=== PATIENT | male | born 1955 | race Caucasian/White ===

== ENCOUNTER 2023-12-08 13:48 | Outpatient (CLI) | payer MEDICARE, OTHER ==
[2023-12-08 14:53] LABS: Hematocrit 42.9 % (38.8-50.0); Hemoglobin 14.8 g/dL (13.5-17.5); Mean Corpuscular HGB CONC 34.5 g/dL (32.0-36.0); Mean Corpuscular Volume 92.7 fL (81.2-95.1); Mean Platelet Volume 10.3 fL (7.4-10.4); Platelet Count 199 10x3/uL (150-450); RBC Distribution Width 12.6 % (11.5-14.5); Red Blood Cell (RBC) Count 4.63 10x6/uL (4.32-5.72); White Blood Cell (WBC) Count 28.5 10x3/uL (3.5-10.5)
[2023-12-08 15:19] LABS: Anion Gap 14 mmol/L (10-20); BUN (Urea Nitrogen) 20 mg/dL (8.4-25.7); Calc. Creatinine Clearance 0 mL/min (70-130); Carbon Dioxide 28 mmol/L (23-31); Chloride 105 mmol/L (98-107); Estimated GFR 47; Glucose 106 mg/dL (80-115); Potassium 4.7 mmol/L (3.5-5.1); Sodium 142 mmol/L (136-145)
== END 2023-12-08 13:49 | disposition home or self-care (01) ==
LOC: LABBT 13:48
PROVIDERS: ATTEND Thoracic Surgery (Cardiothoracic Vascular Surgery)
DX: Z01.812 Encounter for preprocedural laboratory examination (principal); R22.2 Localized swelling, mass and lump, trunk
CPT/HCPCS: 80048; 85027

== ENCOUNTER 2023-12-09 08:08 | Day surgery (SDC) | payer MEDICARE, OTHER ==
[2023-12-08 14:35] VITALS: BMI 27.3
[2023-12-09] MEDS ORDERED: Bupivacaine PF 0.5% 30 ML VIAL ONE (08:26)
[2023-12-09] MEDS ORDERED: EPINEPHrine 1 MG/ML VIAL ONE (08:26)
[2023-12-09] MEDS ORDERED: fentaNYL 50 mcg/mL 1 mL Vial ONE ×3 (09:04→12:02)
[2023-12-09] MEDS ORDERED: PROPOFOL 20 ML ONE (09:04)
[2023-12-09] MEDS ORDERED: Midazolam HCl 2 mg/2 ml Vial ONE ×2 (09:04→10:30)
[2023-12-09] MEDS ORDERED: Lidocaine 2% PF 100 mg/5 ml Syringe ONE (09:05)
[2023-12-09] MEDS ORDERED: Ondansetron PF 4 MG/2 ML Vial ONE (09:05)
[2023-12-09] MEDS ORDERED: Lidocaine 2% 6 ML (Jelly) SYR ONE (09:05)
[2023-12-09] MEDS ORDERED: Dexamethasone 20 MG/5 ML VIAL ONE (09:05)
[2023-12-09] MEDS ORDERED: Rocuronium Bromide 10 MG/ML (10ML VIAL) ONE (10:06)
[2023-12-09] MEDS ORDERED: Sodium Chloride 0.9% 100 ML ONE ×2 (10:32→11:00)
[2023-12-09] MEDS ORDERED: CEFAZOLIN 2 GM VIAL ONE (10:32)
[2023-12-09] MEDS ORDERED: Dexmedetomidine 200 MCG/2 ML VIAL ONE (11:00)
[2023-12-09] MEDS ORDERED: SUGAMMADEX SODIUM 200 MG/2 ML VIAL ONE ×2 (11:10→11:11)
[2023-12-09] MEDS ORDERED: HYDROcodone/Acetaminophen 5/325 mg Tablet ONE (13:16)
== END 2023-12-09 13:59 | disposition home or self-care (01) ==
LOC: SDC 08:08
PROVIDERS: ATTEND Thoracic Surgery (Cardiothoracic Vascular Surgery)
PROC: 0WB80ZZ Excision of Chest Wall, Open Approach (ICD-10-PCS; principal; 2023-12-09)
DX: C83.32 Diffuse large B-cell lymphoma, intrathoracic lymph nodes (principal); Z79.899 Other long term (current) drug therapy; Z88.0 Allergy status to penicillin
CPT/HCPCS: 21601; 88333; J0171; J0665; J1100; J2001; J2250; J2405; J2704; J3010; J3490; 88184; 88185; 88189; 88307; 88341; 88342; 88360

== ENCOUNTER 2023-12-23 13:35 | Outpatient (CLI) | payer MEDICARE, OTHER | END 2023-12-23 13:36 | disposition home or self-care (01) | LOC: RAD 13:35 | PROVIDERS: ATTEND Thoracic Surgery (Cardiothoracic Vascular Surgery) | DX: R22.2 Localized swelling, mass and lump, trunk (principal); J94.8 Other specified pleural conditions; R91.8 Other nonspecific abnormal finding of lung field | CPT/HCPCS: 71046 ==

== ENCOUNTER 2023-12-25 11:00 | Outpatient (CLI) | payer MEDICARE, OTHER | END 2023-12-25 11:01 | LOC: PET 11:00 | PROVIDERS: ATTEND Internal Medicine Hematology & Oncology | DX: C91.10 Chronic lymphocytic leukemia of B-cell type not having achieved remission (principal); R59.0 Localized enlarged lymph nodes | CPT/HCPCS: 78815; A9552 ==

== ENCOUNTER 2024-05-17 09:00 | Outpatient (CLI) | payer MEDICARE, OTHER | END 2024-05-17 11:00 | disposition home or self-care (01) | LOC: PET 09:00 | PROVIDERS: ATTEND Internal Medicine Hematology & Oncology | DX: C91.10 Chronic lymphocytic leukemia of B-cell type not having achieved remission (principal); D70.8 Other neutropenia; R22.2 Localized swelling, mass and lump, trunk | CPT/HCPCS: 78815; A9552 ==

== ENCOUNTER 2024-07-14 13:12 | Outpatient (CLI) | payer MEDICARE, OTHER | END 2024-07-14 13:13 | disposition home or self-care (01) | LOC: BICRAD 13:12 | PROVIDERS: ATTEND Internal Medicine Hematology & Oncology | DX: C91.10 Chronic lymphocytic leukemia of B-cell type not having achieved remission (principal); D70.8 Other neutropenia; R91.1 Solitary pulmonary nodule | CPT/HCPCS: 71046; 80053 ==

== ENCOUNTER 2024-07-21 07:27 | Outpatient (CLI) | payer MEDICARE, OTHER | END 2024-07-21 07:28 | disposition home or self-care (01) | LOC: CT 07:27 | PROVIDERS: ATTEND Internal Medicine Hematology & Oncology | DX: C91.10 Chronic lymphocytic leukemia of B-cell type not having achieved remission (principal); D70.8 Other neutropenia; R91.8 Other nonspecific abnormal finding of lung field | CPT/HCPCS: 71250 ==

== ENCOUNTER 2025-01-21 07:19 | Emergency (ER) | payer MEDICARE, OTHER ==
[2025-01-21 07:53] LABS: Hematocrit 33.8 % (42.0-52.0); Hemoglobin 11.8 g/dL (14.0-18.0); Mean Corpuscular Hemoglobin 36.1 pg (27.0-31.0); Mean Corpuscular Volume 103.4 fL (78.0-98.0); Platelet Count 74 10x3/uL (130-400); Red Blood Cell (RBC) Count 3.27 mill/uL (4.70-6.10); White Blood Cell (WBC) Count 2.48 10x3/uL (4.8-10.8)
[2025-01-21 08:12] LABS: ALT (SGPT) 18 U/L (Less than 45); AST (SGOT) 29 U/L (11-34); Albumin 4.4 g/dL (3.1-4.5); Alkaline Phosphatase 122 U/L (40-110); Anion Gap 13 mmol/L (10-20); BUN (Urea Nitrogen) 27 mg/dL (8.4-25.7); Bilirubin, Total 1.0 mg/dL (0.3-1.2); Calc. Creatinine Clearance 0 mL/min (70-130); Calcium 9.5 mg/dL (7.8-10.44); Carbon Dioxide 23 mmol/L (23-31); Chloride 103 mmol/L (98-107); Globulin 2.3 g/dL (2.4-3.5); Glucose 115 mg/dL (80-115); Magnesium 1.5 mg/dL (1.6-2.6); Potassium 4.6 mmol/L (3.5-5.1); Sodium 134 mmol/L (136-145)
[2025-01-21] MEDS ORDERED: Cefepime 2 GM VIAL ONE (08:42)
[2025-01-21 08:47] LABS: Macrocytosis SLIGHT = 6-15 cells HPF (0-5); Platelet Adequacy Comment Platelets Decreased; Polychromasia SLIGHT = 2-3 cells HPF (0-2)
[2025-01-21] MEDS ORDERED: Magnesium 2 GM/50 ML BAG (IN WATER) ONE (09:00)
[2025-01-21 09:45] LABS: Bacteria/HPF None Seen HPF (None Seen); CAUTI Indications for Culture Fever or rigors; Glucose, Urine (Dipstick) Normal (Negative); Leukocyte Negative Leu/uL (Negative); Protein, Urine (Dipstick) Negative (Neg-Trace); RBC/HPF 0-3 HPF (0-3); Specific Gravity, Urine 1.022 (1.002-1.036); WBC/HPF 0-3 HPF (0-3)
[2025-01-21 09:46] LABS: Urine Culture Reflex No No
== END 2025-01-21 14:26 | disposition home or self-care (01) ==
LOC: ERS 07:19
DX: U07.1 COVID-19 (principal); R07.9 Chest pain, unspecified; D61.818 Other pancytopenia; Z94.84 Stem cells transplant status; Z55.6 Problems related to health literacy
CPT/HCPCS: 71045; 80053; 80197; 81001; 83605; 83735; 84484 ×2; 85025; 87040; 87086; 87426; 93005; J3475; 36415; 96365; 96366; J0692